=== PATIENT | male | born 1985 | race Caucasian/White ===

== ENCOUNTER 2020-09-10 13:39 | Observation (INO) | payer SELFPAY ==
[~2020-09-10] VITALS: Ht 193 cm; Wt 108.7 kg
[2020-09-10] MEDS ORDERED: IV NORMAL SALINE 1000ML BAG 1,000 ML IV SCH (14:30)
--- NOTE | 2020-09-10 14:31 | PHYS DOC ---
Past Medical History Past Medical History: Alcoholism Past Surgical History: No Surgical History Smoking Status: Never Smoker Alcohol Use: Sober General Adult EDM: Chief Complaint: WITHDRAWL HPI: HPI: Patient is a 35 year old male with history of alcohol abuse presents to the emergency room requesting alcohol detox. Last drink of liquor was yesterday evening. States he went to [facility] today but because he had tremors and abnormal vital signs he was sent to the emergency room for evaluation and possible Librium taper. Patient states he has never had symptoms or seizures when withdrawing from alcohol. He denies any drug use. Review of Systems: Review of Systems: Constitutional: Denies fever or chills. [] Eyes: Denies change in visual acuity. [] HENT: Denies nasal congestion or sore throat. [] Respiratory: Denies cough or shortness of breath. [] Cardiovascular: Denies chest pain or edema. [] GI: Denies abdominal pain, nausea, vomiting, bloody stools or diarrhea. [] : Denies dysuria. [] Musculoskeletal: Denies back pain or joint pain. [] Integument: Denies rash. [] Neurologic: Denies headache, focal weakness or sensory changes. [] Endocrine: Denies polyuria or polydipsia. [] Lymphatic: Denies swollen glands. [] Psychiatric: Denies depression or anxiety. [] Heart Score: Risk Factors: Risk Factors: DM, Current or recent (<one month) smoker, HTN, HLP, family history of CAD, obesity. Risk Scores: Score 0 - 3: 2.5% MACE over next 6 weeks - Discharge Home Score 4 - 6: 20.3% MACE over next 6 weeks - Admit for Clinical Observation Score 7 - 10: 72.7% MACE over next 6 weeks - Early Invasive Strategies Allergies: Allergies: Allergies Coded Allergies Type Severity Reaction Last Updated Verified No Known Drug Allergies 09/10/20 No Physical Exam: PE: Constitutional: Well developed, well nourished, no acute distress, non-toxic appearance. [] HENT: Normocephalic, atraumatic, bilateral external ears normal, oropharynx moist, no oral exudates, nose normal. [] Eyes: PERRLA, EOMI, conjunctiva normal, no discharge. [] Neck: Normal range of motion, no tenderness, supple, no stridor. [] Cardiovascular:Heart rate regular rhythm, no murmur [] Lungs & Thorax: Bilateral breath sounds clear to auscultation [] Abdomen: Bowel sounds normal, soft, no tenderness, no masses, no pulsatile masses. [] Skin: Warm, dry, no erythema, no rash. [] Back: No tenderness, no CVA tenderness. [] Extremities: No tenderness, no cyanosis, no clubbing, ROM intact, no edema. [] Neurologic: Alert and oriented X 3, normal motor function, normal sensory f unction, no focal deficits noted. [] Psychologic: Affect normal, judgement normal, mood normal. [] Current Patient Data: Labs: Laboratory Tests Test 09/10/20 14:50 White Blood Count 11.0 x10^3/uL Red Blood Count 5.34 x10^6/uL Hemoglobin 16.7 g/dL Hematocrit 46.7 % Mean Corpuscular Volume 87 fL Mean Corpuscular Hemoglobin 31 pg Mean Corpuscular Hemoglobin Concent 36 g/dL Red Cell Distribution Width 13.2 % Platelet Count 166 x10^3/uL Neutrophils (%) (Auto) 87 % Lymphocytes (%) (Auto) 7 % Monocytes (%) (Auto) 5 % Eosinophils (%) (Auto) 0 % Basophils (%) (Auto) 1 % Neutrophils # (Auto) 9.5 x10^3/uL Lymphocytes # (Auto) 0.8 x10^3/uL Monocytes # (Auto) 0.6 x10^3/uL Eosinophils # (Auto) 0.0 x10^3/uL Basophils # (Auto) 0.1 x10^3/uL Segmented Neutrophils % 90 % Lymphocytes % 7 % Monocytes % 2 % Eosinophils % 1 % Toxic Granulation Slight Platelet Estimate Adequate Large Platelets Occ Sodium Level 135 mmol/L Potassium Level 3.8 mmol/L Chloride Level 94 mmol/L Carbon Dioxide Level 26 mmol/L Anion Gap 15 Blood Urea Nitrogen 14 mg/dL Creatinine 0.9 mg/dL Estimated GFR (Cockcroft-Gault) 96.0 Glucose Level 112 mg/dL Calcium Level 9.7 mg/dL Magnesium Level 1.9 mg/dL Total Bilirubin 1.1 mg/dL Direct Bilirubin 0.2 mg/dL Aspartate Amino Transf (AST/SGOT) 92 U/L Alanine Aminotransferase (ALT/SGPT) 186 U/L Alkaline Phosphatase 54 U/L Total Protein 8.4 g/dL Albumin 4.5 g/dL Salicylates Level < 2.8 mg/dL Salicylate Last Dose Date Unknown Salicylate Last Dose Time Unknown Acetaminophen Level < 2 mcg/ml Acetaminophen Last Dose Date Unknown Acetaminophen Last Dose Time Unknown Ethyl Alcohol Level < 10 mg/dL Current Medications Medications (Trade) Dose Ordered Sig/Ac Route PRN Reason Start Time Stop Time Status Last Admin Dose Admin Sodium Chloride 1,000 ml @ 1,000 mls/hr Q1H IV 09/10/20 14:30 09/10/20 15:29 09/10/20 15:18 Ondansetron HCl (Zofran) 4 mg 1X ONCE IVP 09/10/20 15:00 09/10/20 15:01 DC 09/10/20 15:17 Lorazepam (Ativan Inj) 2 mg 1X ONCE IV 09/10/20 15:00 09/10/20 15:01 DC 09/10/20 15:17 EKG: EKG: [] Radiology/Procedures: Radiology/Procedures: [] Course & Med Decision Making: Course & Med Decision Making Pertinent Labs and Imaging studies reviewed. (See chart for details) [] On arrival patient is diaphoretic and tremorous, CIWA score 28. Patient is given IV fluids and 2 mg IV Ativan. Discussed need for admission for medical detox from alcohol, patient is increased risk for withdrawal seizures, patient agrees with plan. Spoke to Dr. Apodaca who accepts admission [id number] Dragon Disclaimer: Fermín Disclaimer: This electronic medical record was generated, in whole or in part, using a voice recognition dictation system. Departure Departure Impression: Primary Impression: Alcohol withdrawal Qualified Codes: F10.239 - Alcohol dependence with withdrawal, unspecified Admitting Physician: SHAWNA (DIONNA) Condition: STABLE Referrals: CRISTINA WRIGHT MD (PCP) PINEDA TRUJILLO [employer] Sep 10, 2020 14:31
[2020-09-10 14:59] LABS: BASO # 0.1 x10^3/uL (0.0-0.2); BASO % 1 % (0-3); EOS % 0 % (0-3); HEMATOCRIT 46.7 % (39.0-53.0); HEMOGLOBIN 16.7 g/dL (13.0-17.5); LYMPH # 0.8 x10^3/uL (1.0-4.8); LYMPH % 7 % (24-48); MEAN CORPUSCULAR HEMOGLOBIN 31 pg (25-35); MEAN CORPUSCULAR HGB CONC 36 g/dL (31-37); MEAN CORPUSCULAR VOLUME 87 fL (79-100); MONO # 0.6 x10^3/uL (0.0-1.1); MONO % 5 % (0-9); NEUT # 9.5 x10^3/uL (1.8-7.7); NEUT % 87 % (31-73); PLATELET COUNT 166 x10^3/uL (140-400); RED BLOOD COUNT 5.34 x10^6/uL (4.30-5.70); RED CELL DISTRIBUTION WIDTH 13.2 % (11.5-14.5)
[2020-09-10] MEDS ORDERED: ONDANSETRON PF 4 MG/2 ML VIAL. IVP ONE (15:00)
[2020-09-10 15:12] LABS: CALCIUM 9.7 mg/dL (8.5-10.1); CREATININE 0.9 mg/dL (0.7-1.3); POTASSIUM 3.8 mmol/L (3.5-5.1)
[2020-09-10 15:16] LABS: ALBUMIN 4.5 g/dL (3.4-5.0); DIRECT BILIRUBIN 0.2 mg/dL (0.0-0.2); MAGNESIUM 1.9 mg/dL (1.8-2.4); TOTAL BILIRUBIN 1.1 mg/dL (0.2-1.0); TOTAL PROTEIN 8.4 g/dL (6.4-8.2)
[2020-09-10 15:18] LABS: ACETAMIN < 2 mcg/ml (10-30); ETHANOL < 10 mg/dL (0-10); SALIC < 2.8 mg/dL (2.8-20.0)
[2020-09-10 15:20] LABS: % EOS 1 % (0-5); % LYMPHS 7 % (24-48); % MONOS 2 % (0-10); % SEGS 90 % (35-66); PLT ESTIMATE ADEQUATE (ADEQUATE); TOXIC GRANULATION SLIGHT
--- NOTE | 2020-09-10 15:39 | PDOC1 ---
History and Physical Date of Admission Date of Admission DATE: 09/10/20 TIME: 15:37 Identification/Chief Complaint Chief Complaint Tremors Source Source: Patient History of Present Illness History of Present Illness Mr Hussein is a 35 year old male with past medical history of depression and alcohol abuse who presents to the emergency room requesting alcohol detox accompanied by his mother. States he went to [facility] today but he has significant hallucinations and abnormal vital signs with CIWA score 28 he was sent to the emergency room for further treatment. Patient states he has never had symptoms or seizures when withdrawing from alcohol. He denies any drug use. He does vaporize nicotine. Last drink of liquor was 09/09/2020 in the evening. He notes that intermittently for the past several months he has been drinking 1/5 of vodka along with a liter of wine every single day or nearly every day. Does note 2 bouts of emesis yesterday after eating no abdominal pain noted. He has not eaten anything since but does have an appetite. He previously saw outpatient residential treatment and eventually went to [facility] in 2012 for alcohol use disorder and had been sober since with very few relapses. He has not been hospitalized for alcohol withdrawal or pancreatitis previously. 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 He does have a prescription for naltrexone 50 mg at home to be taken 1 hour prior to rewarding behavior such as drinking. He has never actually used this. Labs in ED notable for WBC 11, Hb 16.7, platelets 166, NA 135, K3.8, BUN 14, CR 0.9, glucose 112, AST 92, ALT 186. Ethanol level 0 urine drug screen negative. Note with his mother bedside he is very tremulous CIWA score 22 even after 2 milligrams of Ativan. Admitted for further care and treatment. Past Medical History Psych: Anxiety, Addictions, Depression Past Surgical History Past Surgical History: No pertinent history Family History Family History: Drug Abuse (alcohol) Social History Smoke: 1 pack per day ALCOHOL: heavy Drugs: None Current Medications Current Medications Current Medications Sodium Chloride 1,000 ml @ 1,000 mls/hr Q1H IV Last administered on 09/10/20at 15:18; Start 09/10/20 at 14:30; Stop 09/10/20 at 15:29; Status DC Ondansetron HCl (Zofran) 4 mg 1X ONCE IVP Last administered on 09/10/20at 15:17; Start 09/10/20 at 15:00; Stop 09/10/20 at 15:01; Status DC Lorazepam (Ativan Inj) 2 mg 1X ONCE IV Last administered on 09/10/20at 15:17; Start 09/10/20 at 15:00; Stop 09/10/20 at 15:01; Status DC Allergies Allergies: Coded Allergies: No Known Drug Allergies (Unverified , 09/10/20) ROS General: YES: Fatigue, Malaise; No: Chills, Night Sweats, Appetite, Other PSYCHOLOGICAL ROS: No: Anxiety, Behavioral Disorder, Concentration difficultie, Decreased libido, Depression, Disorientation, Hallucinations, Hostility, Irritablity, Memory difficulties, Mood Swings, Obsessive thoughts, Physical abu se, Sexual abuse, Sleep disturbances, Suicidal ideation, Other Eyes: No Blurry vision, No Decreased vision, No Double vision, No Dry eyes, No Excessive tearing, No Eye Pain, No Itchy Eyes, No Loss of vision, No Photophobia, No Scotomata, No Uses contacts, No Uses glasses, No Other HEENT: No: Heacaches, Visual Changes, Hearing change, Nasal congestion, Nasal discharge, Oral lesions, Sinus pain, Sore Throat, Epistaxis, Sneezing, Snoring, Tinnitus, Vertigo, Vocal changes, Other ALLERGY AND IMMUNOLOGY: No: Hives, Insect Bite Sensitivity, Itchy/Watery Eyes, Nasal Congestion, Post Nasal Drip, Seasonal Allergies, Other Hematological and Lymphatic: No: Bleeding Problems, Blood Clots, Blood Transfusions, Brusing, Night Sweats, Pallor, Swollen Lymph Nodes, Other ENDOCRINE: No: Breast Changes, Galactorrhea, Hair Pattern Changes, Hot Flashes, Malaise/lethargy, Mood Swings, Palpitations, Polydipsia/polyuria, Skin Changes, Temperature Intolerance, Unexpected Weight Changes, Other Breast: No New/Changing Breast Lumps, No Nipple changes, No Nipple discharge, No Other Respiratory: No: Cough, Hemoptysis, Orthopnea, Pleuritic Pain, Shortness of breath, SOB with excertion, Sputum Changes, Stridor, Tachypnea, Wheezing, Other Cardiovascular: No Chest Pain, No Palpitations, No Orthopnea, No Paroxysmal Noc. Dyspnea, No Edema, No Lt Headedness, No Other Gastrointestinal: Yes Nausea, Yes Vomiting; No Abdominal Pain, No Diarrhea, No Constipation, No Melena, No Hematochezia, No Other Genitourinary: No Dysuria, No Frequency, No Incontinence, No Hematuria, No Retention, No Discharge, No Urgency, No Pain, No Flank Pain, No Other, No , No , No , No , No , No , No Musculoskeletal: No Gait Disturbance, No Joint Pain, No Joint Stiffness, No Joint Swelling, No Muscle Pain, No Muscular Weakness, No Pain In:, No Swelling In:, No Other Neurological: Yes Dizziness, Yes Memory Loss, Yes Tremors, Yes Weakness; No Behavorial Changes, No Bowel/Bladder ControlChng, No Confusion, No Gait Disturbance, No Headaches, No Impaired Coord/balance, No Numbness/Tingling, No Seizures, No Speech Problems, No Visual Changes, No Other Skin: No Dry Skin, No Eczema, No Hair Changes, No Lumps, No Mole Changes, No Mottling, No Nail Changes, No Pruritus, No Rash, No Skin Lesion Changes, No Othe r, No Acne Physical Exam General: Alert, Oriented X3, Cooperative, moderate distress HEENT: Atraumatic, PERRLA, EOMI, Mucous membr. moist/pink Lungs: Clear to auscultation, Normal air movement Heart: S1S2, RRR, no thrills, no rubs, no gallops, no murmurs Abdomen: Normal bowel sounds, Soft, No tenderness, No hepatosplenomegaly, No masses Rectal Exam: not examined Extremities: No clubbing, No cyanosis, No edema, Normal pulses, No tenderness/swelling Skin: No rashes, No breakdown, No significant lesion Neuro: Normal gait, Normal speech, Strength at 5/5 X4 ext, Normal tone, Sensation intact, Cranial nerves 3-12 NL, Reflexes 2+ Psych/Mental Status: Other (anxious, elevated mood) Vitals Vitals Vital Signs Date Time Temp Pulse Resp B/P (MAP) Pulse Ox O2 Delivery O2 Flow Rate FiO2 09/10/20 15:25 98.4 118 22 178/114 (135) 98 Room Air 98.4 Labs Labs Laboratory Tests Test 09/10/20 14:50 White Blood Count 11.0 x10^3/uL (4.0-11.0) Red Blood Count 5.34 x10^6/uL (4.30-5.70) Hemoglobin 16.7 g/dL (13.0-17.5) Hematocrit 46.7 % (39.0-53.0) Mean Corpuscular Volume 87 fL (79-100) Mean Corpuscular Hemoglobin 31 pg (25-35) Mean Corpuscular Hemoglobin Concent 36 g/dL (31-37) Red Cell Distribution Width 13.2 % (11.5-14.5) Platelet Count 166 x10^3/uL (140-400) Neutrophils (%) (Auto) 87 % (31-73) Lymphocytes (%) (Auto) 7 % (24-48) Monocytes (%) (Auto) 5 % (0-9) Eosinophils (%) (Auto) 0 % (0-3) Basophils (%) (Auto) 1 % (0-3) Neutrophils # (Auto) 9.5 x10^3/uL (1.8-7.7) Lymphocytes # (Auto) 0.8 x10^3/uL (1.0-4.8) Monocytes # (Auto) 0.6 x10^3/uL (0.0-1.1) Eosinophils # (Auto) 0.0 x10^3/uL (0.0-0.7) Basophils # (Auto) 0.1 x10^3/uL (0.0-0.2) Segmented Neutrophils % 90 % (35-66) Lymphocytes % 7 % (24-48) Monocytes % 2 % (0-10) Eosinophils % 1 % (0-5) Toxic Granulation Slight Platelet Estimate Adequate (ADEQUATE) Large Platelets Occ Sodium Level 135 mmol/L (136-145) Potassium Level 3.8 mmol/L (3.5-5.1) Chloride Level 94 mmol/L (98-107) Carbon Dioxide Level 26 mmol/L (21-32) Anion Gap 15 (6-14) Blood Urea Nitrogen 14 mg/dL (8-26) Creatinine 0.9 mg/dL (0.7-1.3) Estimated GFR (Cockcroft-Gault) 96.0 Glucose Level 112 mg/dL (70-99) Calcium Level 9.7 mg/dL (8.5-10.1) Magnesium Level 1.9 mg/dL (1.8-2.4) Total Bilirubin 1.1 mg/dL (0.2-1.0) Direct Bilirubin 0.2 mg/dL (0.0-0.2) Aspartate Amino Transf (AST/SGOT) 92 U/L (15-37) Alanine Aminotransferase (ALT/SGPT) 186 U/L (16-63) Alkaline Phosphatase 54 U/L (46-116) Total Protein 8.4 g/dL (6.4-8.2) Albumin 4.5 g/dL (3.4-5.0) Salicylates Level < 2.8 mg/dL (2.8-20.0) Salicylate Last Dose Date Unknown Salicylate Last Dose Time Unknown Acetaminophen Level < 2 mcg/ml (10-30) Acetaminophen Last Dose Date Unknown Acetaminophen Last Dose Time Unknown Ethyl Alcohol Level < 10 mg/dL (0-10) Laboratory Tests Test 09/10/20 14:50 White Blood Count 11.0 x10^3/uL (4.0-11.0) Red Blood Count 5.34 x10^6/uL (4.30-5.70) Hemoglobin 16.7 g/dL (13.0-17.5) Hematocrit 46.7 % (39.0-53.0) Mean Corpuscular Volume 87 fL (79-100) Mean Corpuscular Hemoglobin 31 pg (25-35) Mean Corpuscular Hemoglobin Concent 36 g/dL (31-37) Red Cell Distribution Width 13.2 % (11.5-14.5) Platelet Count 166 x10^3/uL (140-400) Neutrophils (%) (Auto) 87 % (31-73) Lymphocytes (%) (Auto) 7 % (24-48) Monocytes (%) (Auto) 5 % (0-9) Eosinophils (%) (Auto) 0 % (0-3) Basophils (%) (Auto) 1 % (0-3) Neutrophils # (Auto) 9.5 x10^3/uL (1.8-7.7) Lymphocytes # (Auto) 0.8 x10^3/uL (1.0-4.8) Monocytes # (Auto) 0.6 x10^3/uL (0.0-1.1) Eosinophils # (Auto) 0.0 x10^3/uL (0.0-0.7) Basophils # (Auto) 0.1 x10^3/uL (0.0-0.2) Segmented Neutrophils % 90 % (35-66) Lymphocytes % 7 % (24-48) Monocytes % 2 % (0-10) Eosinophils % 1 % (0-5) Toxic Granulation Slight Platelet Estimate Adequate (ADEQUATE) Large Platelets Occ Sodium Level 135 mmol/L (136-145) Potassium Level 3.8 mmol/L (3.5-5.1) Chloride Level 94 mmol/L (98-107) Carbon Dioxide Level 26 mmol/L (21-32) Anion Gap 15 (6-14) Blood Urea Nitrogen 14 mg/dL (8-26) Creatinine 0.9 mg/dL (0.7-1.3) Estimated GFR (Cockcroft-Gault) 96.0 Glucose Level 112 mg/dL (70-99) Calcium Level 9.7 mg/dL (8.5-10.1) Magnesium Level 1.9 mg/dL (1.8-2.4) Total Bilirubin 1.1 mg/dL (0.2-1.0) Direct Bilirubin 0.2 mg/dL (0.0-0.2) Aspartate Amino Transf (AST/SGOT) 92 U/L (15-37) Alanine Aminotransferase (ALT/SGPT) 186 U/L (16-63) Alkaline Phosphatase 54 U/L (46-116) Total Protein 8.4 g/dL (6.4-8.2) Albumin 4.5 g/dL (3.4-5.0) Salicylates Level < 2.8 mg/dL (2.8-20.0) Salicylate Last Dose Date Unknown Salicylate Last Dose Time Unknown Acetaminophen Level < 2 mcg/ml (10-30) Acetaminophen Last Dose Date Unknown Acetaminophen Last Dose Time Unknown Ethyl Alcohol Level < 10 mg/dL (0-10) VTE Prophylaxis Ordered VTE Prophylaxis Devices: No VTE Pharmacological Prophylaxi: No Assessment/Plan Assessment/Plan A/P: Acute alcohol withdrawal - CIWA scale, banana bag x2. PAT team to see, seizure precautions Alcohol use disorder - with active use, will add gabapentin to his regimen to help cut cravings Depression - cont paxil dosing Alcoholic hepatitis - will monitor LFTs now that he has stopped drinking. If they normalize, starting his naltrexone on d/c would be appropriate Smoker - uses vaporized nicotine. Counseled on cessation, offered nicotine patch Overweight - counseled on weight loss FEN - Regular diet PPX - Ambulatory, low risk FULL CODE Dispo - inpatient for above Justifications for Admission General Conditions Poss tachycardia?: Yes Justification for admission: Patient has tachycardia (> 100 beats per minute) which is not readily corrected by appropriate treatment within 12 to 24 hours. Other Justification KARLOS HINOJOSA MD Sep 10, 2020 15:39
[2020-09-10] MEDS ORDERED: ACETAMINOPHEN 325 MG TABLET. PO PRN (15:45)
[2020-09-10] MEDS ORDERED: ONDANSETRON PF 4 MG/2 ML VIAL. IV PRN (15:45)
[2020-09-10] MEDS ORDERED: HALOPERIDOL LACTATE 5 MG/ML VIAL. IVP PRN (15:45)
[2020-09-10] MEDS ORDERED: cloNIDine HCL 0.1 MG TABLET PO PRN (15:45)
[2020-09-10 16:13] LABS: BILIRUBIN,URINE MODERATE (NEG); CLARITY,URINE CLEAR; COLOR,URINE AMBER; NITRITE,URINE NEGATIVE (NEG); PROTEIN,URINE >=300 mg/dL (NEG-TRACE)
[2020-09-10 16:17] LABS: BARBITURATES NEG (NEG); BENZODIAZEPINES NEG (NEG); CANNABINOIDS NEG (NEG); COCAINE NEG (NEG); METHADONE NEG (NEG); OPIATES NEG (NEG); PHENCYCLIDINE NEG (NEG)
[2020-09-10 16:18] LABS: AMPHETAMINE/METHAMPHETAMINE NEG (NEG); BACTERIA,URINE 0 /HPF (0-FEW); HYALINE CASTS, URINE MODERATE /HPF; RBC,URINE 0 /HPF (0-2); WBC,URINE RARE /HPF (0-4)
[2020-09-10] MEDS: MULTIVIT INFUSN,ADULT 4,VIT K 10 ML, THIAMINE INJ 100 MG, FOLIC ACID INJ 1 MG in IV NOR... IV SCH (18:16)
[2020-09-10 19:00] VITALS: BP 153/103
[2020-09-10] MEDS ORDERED: PARO20TA99 PO (19:35)
[2020-09-10 23:00] VITALS: BP 130/88
[2020-09-10] MEDS: GABAPENTIN 100 MG CAPSULE. PO SCH (23:24)
[2020-09-10] MEDS: PARoxetine 20 MG TABLET PO SCH (23:24)
[2020-09-10] MEDS: NICOTINE 21MG PATCH. TD PRN (23:24)
[2020-09-11 03:00] VITALS: BP 143/97
[2020-09-11 07:00] VITALS: BP 158/108
--- NOTE | 2020-09-11 07:26 | PDOC ---
[employer] PROGRESS NOTE Date of Service DOS: DATE: 09/11/20 TIME: 07:25 Chief Complaint Chief Complaint A/P: Acute alcohol withdrawal - CIWA scale, banana bag x2. PAT team to see, seizure precautions Alcohol use disorder - with active use, will add gabapentin to his regimen to help cut cravings Depression - cont paxil dosing Alcoholic hepatitis - will monitor LFTs now that he has stopped drinking. If they normalize, starting his naltrexone on d/c would be appropriate Smoker - uses vaporized nicotine. Counseled on cessation, offered nicotine patch Overweight - counseled on weight loss FEN - Regular diet PPX - Ambulatory, low risk FULL CODE Dispo - inpatient for above History of Present Illness History of Present Illness Mr Hussein is a 35 year old male with past medical history of depression and alcohol abuse who presents to the emergency room requesting alcohol detox accompanied by his mother. States he went to [facility] today but he has significant hallucinations and abnormal vital signs with CIWA score 28 he was sent to the e mergency room for further treatment. Patient states he has never had symptoms or seizures when withdrawing from alcohol. He denies any drug use. He does vaporize nicotine. Last drink of liquor was 09/09/2020 in the evening. He notes that intermittently for the past several months he has been drinking 1/5 of vodka along with a liter of wine every single day or nearly every day. Does note 2 bouts of emesis yesterday after eating no abdominal pain noted. He has not eaten anything since but does have an appetite. He previously saw outpatient residential treatment and eventually went to [facility] in 2012 for alcohol use disorder and had been sober since with very few relapses. He has not been hospitalized for alcohol withdrawal or pancreatitis previously. 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 He does have a prescription for naltrexone 50 mg at home to be taken 1 hour prior to rewarding behavior such as drinking. He has never actually used this. Labs in ED notable for WBC 11, Hb 16.7, platelets 166, NA 135, K3.8, BUN 14, CR 0.9, glucose 112, AST 92, ALT 186. Ethanol level 0 urine drug screen negative. Note with his mother bedside he is very tremulous CIWA score 22 even after 2 milligrams of Ativan. Admitted for further care and treatment. CIWA now 0 he is amenable to discharge [facility] with prescriptions. Vitals/I&O Vitals/I&O: Vital Signs Date Time Temp Pulse Resp B/P (MAP) Pulse Ox O2 Delivery O2 Flow Rate FiO2 09/11/20 03:00 98.0 89 18 143/97 (112) 98 Room Air 98.0 I & O 09/10/20 09/10/20 09/11/20 15:00 23:00 07:00 Intake Total 1011.2 ml Output Total 0 ml Balance 1011.2 ml 0 ml Physical Exam General: Alert, Oriented X3, Cooperative, moderate distress Abdomen: Normal bowel sounds, Soft, No tenderness, No hepatosplenomegaly, No masses Extremities: No clubbing, No cyanosis, No edema, Normal pulses, No tenderness/swelling Skin: No rashes, No breakdown, No significant lesion Labs Labs: Laboratory Tests Test 09/10/20 14:50 09/10/20 16:02 White Blood Count 11.0 x10^3/uL (4.0-11.0) Red Blood Count 5.34 x10^6/uL (4.30-5.70) Hemoglobin 16.7 g/dL (13.0-17.5) Hematocrit 46.7 % (39.0-53.0) Mean Corpuscular Volume 87 fL (79-100) Mean Corpuscular Hemoglobin 31 pg (25-35) Mean Corpuscular Hemoglobin Concent 36 g/dL (31-37) Red Cell Distribution Width 13.2 % (11.5-14.5) Platelet Count 166 x10^3/uL (140-400) Neutrophils (%) (Auto) 87 % (31-73) Lymphocytes (%) (Auto) 7 % (24-48) Monocytes (%) (Auto) 5 % (0-9) Eosinophils (%) (Auto) 0 % (0-3) Basophils (%) (Auto) 1 % (0-3) Neutrophils # (Auto) 9.5 x10^3/uL (1.8-7.7) Lymphocytes # (Auto) 0.8 x10^3/uL (1.0-4.8) Monocytes # (Auto) 0.6 x10^3/uL (0.0-1.1) Eosinophils # (Auto) 0.0 x10^3/uL (0.0-0.7) Basophils # (Auto) 0.1 x10^3/uL (0.0-0.2) Segmented Neutrophils % 90 % (35-66) Lymphocytes % 7 % (24-48) Monocytes % 2 % (0-10) Eosinophils % 1 % (0-5) Toxic Granulation Slight Platelet Estimate Adequate (ADEQUATE) Large Platelets Occ Sodium Level 135 mmol/L (136-145) Potassium Level 3.8 mmol/L (3.5-5.1) Chloride Level 94 mmol/L (98-107) Carbon Dioxide Level 26 mmol/L (21-32) Anion Gap 15 (6-14) Blood Urea Nitrogen 14 mg/dL (8-26) Creatinine 0.9 mg/dL (0.7-1.3) Estimated GFR (Cockcroft-Gault) 96.0 Glucose Level 112 mg/dL (70-99) Calcium Level 9.7 mg/dL (8.5-10.1) Magnesium Level 1.9 mg/dL (1.8-2.4) Total Bilirubin 1.1 mg/dL (0.2-1.0) Direct Bilirubin 0.2 mg/dL (0.0-0.2) Aspartate Amino Transf (AST/SGOT) 92 U/L (15-37) Alanine Aminotransferase (ALT/SGPT) 186 U/L (16-63) Alkaline Phosphatase 54 U/L (46-116) Total Protein 8.4 g/dL (6.4-8.2) Albumin 4.5 g/dL (3.4-5.0) Salicylates Level < 2.8 mg/dL (2.8-20.0) Salicylate Last Dose Date Unknown Salicylate Last Dose Time Unknown Acetaminophen Level < 2 mcg/ml (10-30) Acetaminophen Last Dose Date Unknown Acetaminophen Last Dose Time Unknown Ethyl Alcohol Level < 10 mg/dL (0-10) Urine Collection Type Unknown Urine Color Melida Urine Clarity Clear Urine pH 6.0 (<5.0-8.0) Urine Specific Jackson >=1.030 (1.000-1.030) Urine Protein >=300 mg/dL (NEG-TRACE) Urine Glucose (UA) Negative mg/dL (NEG) Urine Ketones (Stick) >=80 mg/dL (NEG) Urine Blood Small (NEG) Urine Nitrite Negative (NEG) Urine Bilirubin Moderate (NEG) Urine Urobilinogen Dipstick 1.0 mg/dL (0.2 mg/dL) Urine Leukocyte Esterase Negative (NEG) Urine RBC 0 /HPF (0-2) Urine WBC Rare /HPF (0-4) Urine Squamous Epithelial Cells None /LPF Urine Bacteria 0 /HPF (0-FEW) Urine Hyaline Casts Moderate /HPF Urine Mucus Marked /LPF Urine Opiates Screen Neg (NEG) Urine Methadone Screen Neg (NEG) Urine Barbiturates Neg (NEG) Urine Phencyclidine Screen Neg (NEG) Urine Amphetamine/Methamphetamine Neg (NEG) Urine Benzodiazepines Screen Neg (NEG) Urine Cocaine Screen Neg (NEG) Urine Cannabinoids Screen Neg (NEG) Urine Ethyl Alcohol Neg (NEG) Assessment and Plan Assessmemt and Plan Problems Medical Problems: (1) Alcohol withdrawal Status: Acute Comment Review of Relevant I have reviewed the following items oksana (where applicable) has been applied. Medications: Current Medications Medications (Trade) Dose Ordered Sig/Ac Route PRN Reason Start Time Stop Time Status Last Admin Dose Admin Sodium Chloride 1,000 ml @ 1,000 mls/hr Q1H IV 09/10/20 14:30 09/10/20 15:29 DC 09/10/20 15:18 Ondansetron HCl (Zofran) 4 mg 1X ONCE IVP 09/10/20 15:00 09/10/20 15:01 DC 09/10/20 15:17 Lorazepam (Ativan Inj) 2 mg 1X ONCE IV 09/10/20 15:00 09/10/20 15:01 DC 09/10/20 15:17 Lorazepam (Ativan Inj) 2 mg PRN Q1HR PRN IV For CIWA 8-14 09/10/20 15:45 09/10/20 18:33 Clonidine HCl (Catapres) 0.1 mg PRN Q1HR PRN PO SBP > 180 or DBP > 100, MRX3 09/10/20 15:45 09/10/20 18:33 Multivitamins 10 ml/Thiamine HCl 100 mg/Folic Acid 1 mg/Sodium Chloride 1,011.2 ml @ 100 mls/ hr DAILY IV 09/10/20 19:00 09/11/20 19:07 09/10/20 18:16 Nicotine (Nicoderm Cq 21mg) 1 patch PRN DAILY PRN TD SMOKING CESSATION 09/10/20 19:45 09/10/20 23:24 Paroxetine HCl (Paxil) 20 mg HS PO 09/10/20 21:00 09/10/20 23:24 Gabapentin (Neurontin) 100 mg TID PO 09/10/20 21:00 09/10/20 23:24 Justifications for Admission General Conditions Poss tachycardia?: Yes Justification for admission: Patient has tachycardia (> 100 beats per minute) which is not readily corrected by appropriate treatment within 12 to 24 hours. Other Justification KARLOS HINOJOSA MD Sep 11, 2020 07:26
[2020-09-11] MEDS: GABAPENTIN 100 MG CAPSULE. PO SCH ×3 (08:36→21:02)
[2020-09-11] MEDS: MULTIVIT INFUSN,ADULT 4,VIT K 10 ML, THIAMINE INJ 100 MG, FOLIC ACID INJ 1 MG in IV NOR... IV SCH (08:37)
[2020-09-11] MEDS: NICOTINE 21MG PATCH. TD PRN (08:47)
[2020-09-11] MEDS ORDERED: MULTIVIT INFUSN,ADULT 4,VIT K 10 ML, THIAMINE INJ 100 MG, FOLIC ACID INJ 1 MG in IV NOR... IV SCH (09:00)
--- NOTE | 2020-09-11 10:16 | NUR ---
ANIYA following. Discussed with RN, pt from home, room air. Pt had been at [facility] but then was told to come to the ER for ETOH withdrawal. ANIYA spoke with Devin SERRA) they will see pt today. ANIYA will continue to follow. Addendum: 09/11/20 at 1234 by SOREN KWAN Prema SERRA) met with pt, pt's mom will take him to fill his prescriptions (Gabapentin and Ativan) and then will drop pt at [facility]. Dr. Sierra notified. Pt will discharge today.
[2020-09-11 11:00] VITALS: BP 158/102
[2020-09-11] MEDS ORDERED: LORA-434 PO (12:42)
[2020-09-11] MEDS ORDERED: GABA-585 PO (12:42)
--- NOTE | 2020-09-11 12:45 | PDOC3 ---
Discharge Summary Visit Information Date of Admission: Sep 10, 2020 Date of Discharge: Sep 12, 2020 Admitting Diagnosis: Alcohol withdrawal Final Diagnosis Problems Medical Problems: (1) Alcohol withdrawal Status: Acute Brief Hospital Course Allergies Allergies Coded Allergies Type Severity Reaction Last Updated Verified No Known Drug Allergies 09/10/20 No Vital Signs Vital Signs Date Time Temp Pulse Resp B/P (MAP) Pulse Ox O2 Delivery O2 Flow Rate FiO2 09/11/20 07:00 97.7 66 17 158/108 (125) 97 Room Air 97.7 Lab Results Laboratory Tests Test 09/10/20 14:50 09/10/20 16:02 White Blood Count 11.0 x10^3/uL (4.0-11.0) Red Blood Count 5.34 x10^6/uL (4.30-5.70) Hemoglobin 16.7 g/dL (13.0-17.5) Hematocrit 46.7 % (39.0-53.0) Mean Corpuscular Volume 87 fL (79-100) Mean Corpuscular Hemoglobin 31 pg (25-35) Mean Corpuscular Hemoglobin Concent 36 g/dL (31-37) Red Cell Distribution Width 13.2 % (11.5-14.5) Platelet Count 166 x10^3/uL (140-400) Neutrophils (%) (Auto) 87 % (31-73) Lymphocytes (%) (Auto) 7 % (24-48) Monocytes (%) (Auto) 5 % (0-9) Eosinophils (%) (Auto) 0 % (0-3) Basophils (%) (Auto) 1 % (0-3) Neutrophils # (Auto) 9.5 x10^3/uL (1.8-7.7) Lymphocytes # (Auto) 0.8 x10^3/uL (1.0-4.8) Monocytes # (Auto) 0.6 x10^3/uL (0.0-1.1) Eosinophils # (Auto) 0.0 x10^3/uL (0.0-0.7) Basophils # (Auto) 0.1 x10^3/uL (0.0-0.2) Segmented Neutrophils % 90 % (35-66) Lymphocytes % 7 % (24-48) Monocytes % 2 % (0-10) Eosinophils % 1 % (0-5) Toxic Granulation Slight Platelet Estimate Adequate (ADEQUATE) Large Platelets Occ Sodium Level 135 mmol/L (136-145) Potassium Level 3.8 mmol/L (3.5-5.1) Chloride Level 94 mmol/L (98-107) Carbon Dioxide Level 26 mmol/L (21-32) Anion Gap 15 (6-14) Blood Urea Nitrogen 14 mg/dL (8-26) Creatinine 0.9 mg/dL (0.7-1.3) Estimated GFR (Cockcroft-Gault) 96.0 Glucose Level 112 mg/dL (70-99) Calcium Level 9.7 mg/dL (8.5-10.1) Magnesium Level 1.9 mg/dL (1.8-2.4) Total Bilirubin 1.1 mg/dL (0.2-1.0) Direct Bilirubin 0.2 mg/dL (0.0-0.2) Aspartate Amino Transf (AST/SGOT) 92 U/L (15-37) Alanine Aminotransferase (ALT/SGPT) 186 U/L (16-63) Alkaline Phosphatase 54 U/L (46-116) Total Protein 8.4 g/dL (6.4-8.2) Albumin 4.5 g/dL (3.4-5.0) Salicylates Level < 2.8 mg/dL (2.8-20.0) Salicylate Last Dose Date Unknown Salicylate Last Dose Time Unknown Acetaminophen Level < 2 mcg/ml (10-30) Acetaminophen Last Dose Date Unknown Acetaminophen Last Dose Time Unknown Ethyl Alcohol Level < 10 mg/dL (0-10) Urine Collection Type Unknown Urine Color Melida Urine Clarity Clear Urine pH 6.0 (<5.0-8.0) Urine Specific Bristol >=1.030 (1.000-1.030) Urine Protein >=300 mg/dL (NEG-TRACE) Urine Glucose (UA) Negative mg/dL (NEG) Urine Ketones (Stick) >=80 mg/dL (NEG) Urine Blood Small (NEG) Urine Nitrite Negative (NEG) Urine Bilirubin Moderate (NEG) Urine Urobilinogen Dipstick 1.0 mg/dL (0.2 mg/dL) Urine Leukocyte Esterase Negative (NEG) Urine RBC 0 /HPF (0-2) Urine WBC Rare /HPF (0-4) Urine Squamous Epithelial Cells None /LPF Urine Bacteria 0 /HPF (0-FEW) Urine Hyaline Casts Moderate /HPF Urine Mucus Marked /LPF Urine Opiates Screen Neg (NEG) Urine Methadone Screen Neg (NEG) Urine Barbiturates Neg (NEG) Urine Phencyclidine Screen Neg (NEG) Urine Amphetamine/Methamphetamine Neg (NEG) Urine Benzodiazepines Screen Neg (NEG) Urine Cocaine Screen Neg (NEG) Urine Cannabinoids Screen Neg (NEG) Urine Ethyl Alcohol Neg (NEG) Laboratory Tests Test 09/10/20 14:50 09/10/20 16:02 White Blood Count 11.0 x10^3/uL (4.0-11.0) Red Blood Count 5.34 x10^6/uL (4.30-5.70) Hemoglobin 16.7 g/dL (13.0-17.5) Hematocrit 46.7 % (39.0-53.0) Mean Corpuscular Volume 87 fL (79-100) Mean Corpuscular Hemoglobin 31 pg (25-35) Mean Corpuscular Hemoglobin Concent 36 g/dL (31-37) Red Cell Distribution Width 13.2 % (11.5-14.5) Platelet Count 166 x10^3/uL (140-400) Neutrophils (%) (Auto) 87 % (31-73) Lymphocytes (%) (Auto) 7 % (24-48) Monocytes (%) (Auto) 5 % (0-9) Eosinophils (%) (Auto) 0 % (0-3) Basophils (%) (Auto) 1 % (0-3) Neutrophils # (Auto) 9.5 x10^3/uL (1.8-7.7) Lymphocytes # (Auto) 0.8 x10^3/uL (1.0-4.8) Monocytes # (Auto) 0.6 x10^3/uL (0.0-1.1) Eosinophils # (Auto) 0.0 x10^3/uL (0.0-0.7) Basophils # (Auto) 0.1 x10^3/uL (0.0-0.2) Segmented Neutrophils % 90 % (35-66) Lymphocytes % 7 % (24-48) Monocytes % 2 % (0-10) Eosinophils % 1 % (0-5) Toxic Granulation Slight Platelet Estimate Adequate (ADEQUATE) Large Platelets Occ Sodium Level 135 mmol/L (136-145) Potassium Level 3.8 mmol/L (3.5-5.1) Chloride Level 94 mmol/L (98-107) Carbon Dioxide Level 26 mmol/L (21-32) Anion Gap 15 (6-14) Blood Urea Nitrogen 14 mg/dL (8-26) Creatinine 0.9 mg/dL (0.7-1.3) Estimated GFR (Cockcroft-Gault) 96.0 Glucose Level 112 mg/dL (70-99) Calcium Level 9.7 mg/dL (8.5-10.1) Magnesium Level 1.9 mg/dL (1.8-2.4) Total Bilirubin 1.1 mg/dL (0.2-1.0) Direct Bilirubin 0.2 mg/dL (0.0-0.2) Aspartate Amino Transf (AST/SGOT) 92 U/L (15-37) Alanine Aminotransferase (ALT/SGPT) 186 U/L (16-63) Alkaline Phosphatase 54 U/L (46-116) Total Protein 8.4 g/dL (6.4-8.2) Albumin 4.5 g/dL (3.4-5.0) Salicylates Level < 2.8 mg/dL (2.8-20.0) Salicylate Last Dose Date Unknown Salicylate Last Dose Time Unknown Acetaminophen Level < 2 mcg/ml (10-30) Acetaminophen Last Dose Date Unknown Acetaminophen Last Dose Time Unknown Ethyl Alcohol Level < 10 mg/dL (0-10) Urine Collection Type Unknown Urine Color Melida Urine Clarity Clear Urine pH 6.0 (<5.0-8.0) Urine Specific Bristol >=1.030 (1.000-1.030) Urine Protein >=300 mg/dL (NEG-TRACE) Urine Glucose (UA) Negative mg/dL (NEG) Urine Ketones (Stick) >=80 mg/dL (NEG) Urine Blood Small (NEG) Urine Nitrite Negative (NEG) Urine Bilirubin Moderate (NEG) Urine Urobilinogen Dipstick 1.0 mg/dL (0.2 mg/dL) Urine Leukocyte Esterase Negative (NEG) Urine RBC 0 /HPF (0-2) Urine WBC Rare /HPF (0-4) Urine Squamous Epithelial Cells None /LPF Urine Bacteria 0 /HPF (0-FEW) Urine Hyaline Casts Moderate /HPF Urine Mucus Marked /LPF Urine Opiates Screen Neg (NEG) Urine Methadone Screen Neg (NEG) Urine Barbiturates Neg (NEG) Urine Phencyclidine Screen Neg (NEG) Urine Amphetamine/Methamphetamine Neg (NEG) Urine Benzodiazepines Screen Neg (NEG) Urine Cocaine Screen Neg (NEG) Urine Cannabinoids Screen Neg (NEG) Urine Ethyl Alcohol Neg (NEG) Brief Hospital Course Mr Hussein is a 35 year old male with past medical history of depression and alcohol abuse who presents to the emergency room requesting alcohol detox accompanied by his mother. States he went to [facility] today but he has significant hallucinations and abnormal vital signs with CIWA score 28 he was sent to the emergency room for further treatment. Patient states he has never had symptoms or seizures when withdrawing from alcohol. He denies any drug use. He does vaporize nicotine. Last drink of liquor was 09/09/2020 in the evening. He notes that intermittently for the past several months he has been drinking 1/5 of vodka along with a liter of wine every single day or nearly every day. Does note 2 bouts of emesis yesterday after eating no abdominal pain noted. He has not eaten anything since but does have an appetite. He previously saw outpatient residential treatment and eventually went to [facility] in 2012 for alcohol use disorder and had been sober since with very few relapses. He has not been hospitalized for alcohol withdrawal or pancreatitis previously. 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 He does have a prescription for naltrexone 50 mg at home to be taken 1 hour prior to rewarding behavior such as drinking. He has never actually used this. Labs in ED notable for WBC 11, Hb 16.7, platelets 166, NA 135, K3.8, BUN 14, CR 0.9, glucose 112, AST 92, ALT 186. Ethanol level 0 urine drug screen negative. Note with his mother bedside he is very tremulous CIWA score 22 even after 2 milligrams of Ativan. Admitted for further care and treatment. CIWA now 0 he is amenable to discharge [facility] with prescriptions. Problem list: Acute alcohol withdrawal - CIWA scale, banana bag x2. PAT team to see, seizure precautions Alcohol use disorder - with active use, will add gabapentin to his regimen to h elp cut cravings Depression - cont paxil dosing Alcoholic hepatitis - will monitor LFTs now that he has stopped drinking. If the y normalize, starting his naltrexone on d/c would be appropriate Smoker - uses vaporized nicotine. Counseled on cessation, offered nicotine patch Overweight - counseled on weight loss Greater than 30 minutes spent on d/c Discharge Information Condition at Discharge: Improved Follow Up: Weeks (1) Disposition/Orders: D/C to Home Scheduled Gabapentin (Gabapentin ) 100 Mg Capsule, 100 MG PO TID for Alcohol use disorder for 90 Days, #270 Ref 3 Prescribed by: KARLOS HINOJOSA MD on 09/11/20 1242 Paroxetine Hcl (Paxil) 20 Mg Tablet, 1 TAB PO HS for dep, Ref 0 (Reported) Entered as Reported by: AMI ADEN on 09/10/201934 Last Action: New Order on 09/10/201934 by AMI ADEN Scheduled PRN Lorazepam (Ativan) 1 Mg Tablet, 1 MG PO PRN Q1HR PRN for For CIWA 8-14 for 3 Days, #9 Prescribed by: KARLOS HINOJOSA MD on 09/11/20 1242 Justicifation of Admission Dx: Justifications for Admission: Justification of Admission Dx: Yes KARLOS HINOJOSA MD Sep 11, 2020 12:44
[2020-09-11 15:00] VITALS: BP 164/109
[2020-09-11 19:00] VITALS: BP 166/112
[2020-09-11] MEDS: PARoxetine 20 MG TABLET PO SCH (21:03)
[2020-09-11 23:00] VITALS: BP_SYST 162; BP_SYST 166; BP_DIAS 112; BP_DIAS 91
[2020-09-12 03:00] VITALS: BP 134/96
[2020-09-12 07:00] VITALS: BP 162/107
--- NOTE | 2020-09-12 08:04 | PDOC ---
[employer] PROGRESS NOTE Date of Service DOS: DATE: 09/12/20 TIME: 08:04 Chief Complaint Chief Complaint A/P: Acute alcohol withdrawal - CIWA scale, banana bag x2. PAT team to see, seizure precautions Alcohol use disorder - with active use, will add gabapentin to his regimen to help cut cravings Depression - cont paxil dosing Alcoholic hepatitis - will monitor LFTs now that he has stopped drinking. If they normalize, starting his naltrexone on d/c would be appropriate Smoker - uses vaporized nicotine. Counseled on cessation, offered nicotine patch Overweight - counseled on weight loss FEN - Regular diet PPX - Ambulatory, low risk FULL CODE Dispo - inpatient for above History of Present Illness History of Present Illness Mr Hussein is a 35 year old male with past medical history of depression and alcohol abuse who presents to the emergency room requesting alcohol detox accompanied by his mother. States he went to [facility] today but he has significant hallucinations and abnormal vital signs with CIWA score 28 he was sent to the e mergency room for further treatment. Patient states he has never had symptoms or seizures when withdrawing from alcohol. He denies any drug use. He does vaporize nicotine. Last drink of liquor was 09/09/2020 in the evening. He notes that intermittently for the past several months he has been drinking 1/5 of vodka along with a liter of wine every single day or nearly every day. Does note 2 bouts of emesis yesterday after eating no abdominal pain noted. He has not eaten anything since but does have an appetite. He previously saw outpatient residential treatment and eventually went to [facility] in 2012 for alcohol use disorder and had been sober since with very few relapses. He has not been hospitalized for alcohol withdrawal or pancreatitis previously. 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 He does have a prescription for naltrexone 50 mg at home to be taken 1 hour prior to rewarding behavior such as drinking. He has never actually used this. Labs in ED notable for WBC 11, Hb 16.7, platelets 166, NA 135, K3.8, BUN 14, CR 0.9, glucose 112, AST 92, ALT 186. Ethanol level 0 urine drug screen negative. Note with his mother bedside he is very tremulous CIWA score 22 even after 2 milligrams of Ativan. Admitted for further care and treatment. 09/11: CIWA now 0 he is amenable to discharge [facility] with prescriptions. COVID 19 negative Overnight afebrile CIWA 0. Feeling much better eating well mother bedside for safe discharge to [facility] Vitals/I&O Vitals/I&O: Vital Signs Date Time Temp Pulse Resp B/P (MAP) Pulse Ox O2 Delivery O2 Flow Rate FiO2 09/12/20 07:00 98.1 84 17 162/107 (125) 95 Room Air 98.1 I & O 09/11/20 09/11/20 09/12/20 15:00 23:00 07:00 Output Total 0 ml Balance 0 ml Physical Exam General: Alert, Oriented X3, Cooperative, moderate distress Abdomen: Normal bowel sounds, Soft, No tenderness, No hepatosplenomegaly, No masses Extremities: No clubbing, No cyanosis, No edema, Normal pulses, No tenderness/swelling Skin: No rashes, No breakdown, No significant lesion Labs Labs: Laboratory Tests Test 09/11/20 21:10 SARS-CoV-2 Antigen (Rapid) Negative (NEGATIVE) Assessment and Plan Assessmemt and Plan Problems Medical Problems: (1) Alcohol withdrawal Status: Acute Comment Review of Relevant I have reviewed the following items oksana (where applicable) has been applied. Justifications for Admission General Conditions Poss tachycardia?: Yes Justification for admission: Patient has tachycardia (> 100 beats per minute) which is not readily corrected by appropriate treatment within 12 to 24 hours. Other Justification KARLOS HINOJOSA MD Sep 12, 2020 08:04
[2020-09-12] MEDS: GABAPENTIN 100 MG CAPSULE. PO SCH (09:35)
[2020-09-12 11:00] VITALS: BP 158/111
--- NOTE | 2020-09-12 11:08 | NUR ---
SW following. Discussed with RN. Per DR. Sierra's note, pt's mother at bedside to take pt to [facility]. RN advised no SW needs. SW will continue to follow.
--- NOTE | 2020-09-12 11:19 | NUR ---
Discharge instructions given with prescriptions. Answered questions and concerns. Verbalized understanding. Returned pt home medication and vapor. Pt discharged home and will follow up with [facility]. Escorted out by w/c accompanied by mother.
== END 2020-09-12 11:17 | disposition home or self-care (01) ==
LOC: ER 13:39 → 5 NORTH 15:30 → ER 16:49
PROVIDERS: ADMIT Internal Medicine; ATTEND Internal Medicine
DX: F10.239 Alcohol dependence with withdrawal, unspecified (principal); Z20.828 Contact with and (suspected) exposure to other viral communicable diseases; F32.9 Major depressive disorder, single episode, unspecified; K70.10 Alcoholic hepatitis without ascites; E66.3 Overweight; F17.210 Nicotine dependence, cigarettes, uncomplicated; Z68.29 Body mass index [BMI] 29.0-29.9, adult; Z79.899 Other long term (current) drug therapy
CPT/HCPCS: 36415; 80048; 80076; 80307; 80329; 81001; 83735; 85007; 85025; 87426; 96361; 96365; 96366; 96375; 96376; 99284; G0378; G0480; J2060; J2405; J3411; J3490; J7030; U0003; G0379